=== PATIENT | female | born 1965 | race Two or more races ===

== ENCOUNTER 2017-03-29 05:35 | Inpatient (IN) | payer OTHER ==
[~2017-03-29] VITALS: Ht 165.1 cm; Wt 54.4 kg
--- NOTE | 2017-03-29 06:05 | NUR ---
pt bibra fr home for c/o rt eye pain, KIM w/ nonproductive cough, lower body aches. AOX4, afebrile w/ resp even & unlabored, tachypneic, hypoxic, tachycardic, w/ mild discomfort noted. pt placed in gown, on 2 l/min O2 via NC, continuous pulse-ox w/ cardiac monitoring. Dr. Newman at bedside for further eval.
--- NOTE | 2017-03-29 06:18 | NUR ---
Dr. Newman at bedside for eye exam rt eye.
--- NOTE | 2017-03-29 06:24 | NUR ---
CXR at bedside.
[2017-03-29] MEDS ORDERED: ONDANSETRON HCL/PF 4 MG/2 ML VIAL IVP ONE (06:30)
[2017-03-29] MEDS ORDERED: AZITHROMYCIN 500 MG in IV D5W 250 ML IV ONE (06:30)
[2017-03-29] MEDS ORDERED: IV NS 0.9% 1,000 ML BAG IV ONE ×2 (06:30→07:00)
[2017-03-29] MEDS ORDERED: MORPHINE SULFATE INJ 2 MG/ML DISP.SYRIN IV ONE ×2 (06:30→11:00)
[2017-03-29] MEDS ORDERED: TETRACAINE HCL 0.5% OPHTALMIC 15 ML BOTTLE OP ONE (06:30)
[2017-03-29] MEDS ORDERED: CEFTRIAXONE 1GM BAG (ER ONLY) 50 ML IV ONE ×2 (06:30→06:34)
[2017-03-29] MEDS ORDERED: ALBUTEROL FS 2.5 MG/3 ML VIAL.NEB NEB ONE (06:30)
[2017-03-29] MEDS ORDERED: IPRATROPIUM NEB FS 0.5 MG/2.5 ML AMPUL.NEB NEB ONE (06:30)
--- NOTE | 2017-03-29 06:30 | NUR ---
[facility] STARTED, LABS DRAWN W/ BLOOD CULTURES & LACTIC ACID, SENT W/ RSV SWAB TO LAB.
[2017-03-29] MEDS ORDERED: AZITHROMYCIN 500 MG VIAL ONE (06:33)
[2017-03-29] MEDS ORDERED: MORPHINE SULFATE INJ 4 MG/ML DISP.SYRIN ONE (06:33)
[2017-03-29] MEDS ORDERED: IV SET PRIMARY PUMP SET 1 EA INFUS.SET MC ONE ×2 (06:34→09:53)
[2017-03-29] MEDS ORDERED: ONDANSETRON HCL/PF 4 MG/2 ML VIAL ONE (06:34)
[2017-03-29] MEDS ORDERED: IV SET PRIMARY 1 EA INFUS.SET MC ONE ×2 (06:34→07:06)
[2017-03-29] MEDS ORDERED: IV NS 0.9% 1,000 ML ONE ×2 (06:34→07:06)
[2017-03-29] MEDS ORDERED: IV D5W 250 ML IV ONE (06:34)
[2017-03-29 06:38] LABS: BASOPHILS # (AUTO) 0.2 /CMM (0.0-0.2); BASOPHILS % (AUTO) 1.1 % (0.0-2.0); EOSINOPHILS # (AUTO) 0.3 /CMM (0.0-0.7); EOSINOPHILS % (AUTO) 2.1 % (0.0-6.0); HEMATOCRIT 39 % (33-45); HEMOGLOBIN 12.7 g/dL (11.5-14.8); LYMPHOCYTES # (AUTO) 0.5 /CMM (0.8-4.8); LYMPHOCYTES % (AUTO) 2.9 % (20.0-44.0); MEAN CORPUSCULAR HEMOGLOBIN 30 PG (26.0-33.0); MEAN CORPUSCULAR HGB CONC 33 g/dl (31.0-36.0); MEAN CORPUSCULAR VOLUME 90 fL (82-100); MONOCYTES # (AUTO) 0.4 /CMM (0.1-1.30); MONOCYTES % (AUTO) 2.7 % (2.0-12.0); NEUTROPHILS # (AUTO) 14.9 /CMM (1.8-8.9); NEUTROPHILS % (AUTO) 91.2 % (43.0-81.0); PLATELET COUNT (AUTO) 261 /CMM (150-450); RDW COEFFICIENT OF VARIATION 13.3 (11.5-15.0); WHITE BLOOD COUNT (AUTO) 16.4 K/uL (4.3-11.0)
[2017-03-29] MEDS ORDERED: ALBUTEROL FS 2.5 MG/3 ML VIAL.NEB ONE (06:38)
[2017-03-29] MEDS ORDERED: IPRATROPIUM NEB FS 0.5 MG/2.5 ML AMPUL.NEB ONE (06:39)
[2017-03-29 06:47] LABS: CALCIUM, SERUM 8.6 mg/dL (8.5-10.1); CARBON DIOXIDE 26 mmol/L (21-32); CHLORIDE 99 mmol/L (98-107); GFR 58 mL/min (>60); GLUCOSE 113 mg/dL (74-106); POTASSIUM 3.1 mmol/L (3.5-5.1); SODIUM SERUM 137 mmol/L (136-145); UREA NITROGEN, BLOOD 9 mg/dL (7-18)
--- NOTE | 2017-03-29 06:51 | NUR ---
EKG at bedside. BUSINESS CONTINUITY CONSULTANT at bedside for breathing tx.
[2017-03-29 06:59] LABS: LACTIC ACID 3.3 mmol/L (0.4-2.0)
--- NOTE | 2017-03-29 07:00 | NUR ---
pt sent to CT via [facility].
--- NOTE | 2017-03-29 07:14 | NUR ---
pt return fr CT. Eye exam performed. On continuous pulse-ox w/ cardiac monitoring.
[2017-03-29] MEDS ORDERED: IOHEXOL-350 100 ML VIAL IV ONE (07:32)
[2017-03-29] MEDS ORDERED: IV NS 0.9% 250 ML IV ONE (07:32)
[2017-03-29] MEDS ORDERED: CT SWABBABLE VALVE TRANS SET 1 EA INFUS.SET MC ONE (07:32)
--- NOTE | 2017-03-29 07:38 | NUR ---
pt sent to CT for CTPA.
[2017-03-29] MEDS ORDERED: LEVO112T2 PO (07:57)
--- NOTE | 2017-03-29 07:57 | NUR ---
pt back fr CT.
[2017-03-29] MEDS ORDERED: ACETAMINOPHEN ES 500 MG TABLET ONE (08:26)
[2017-03-29] MEDS ORDERED: ACETAMINOPHEN ES 500 MG TABLET PO ONE (08:30)
[2017-03-29 09:03] LABS: BILIRUBIN,DIRECT 0.2 mg/dL (0.0-0.2); BILIRUBIN,TOTAL 0.4 mg/dL (0.2-1.0)
--- NOTE | 2017-03-29 09:11 | NUR ---
REPORT GIVEN TO MAJOR MORA FOR CONTINUATION OF CARE.
--- NOTE | 2017-03-29 09:20 | NUR ---
PT TRANSFERED TO VIA [facility] VIA [facility]
[2017-03-29 09:26] LABS: LACTIC ACID REFLEX 2.6 mmol/L (0.4-1.9)
[2017-03-29] MEDS ORDERED: Z GUARD REMEDY 2 OZ OINT TP PRN (09:30)
[2017-03-29] MEDS ORDERED: MAGNESIUM HYDROXIDE 30 ML UDC PO PRN (09:30)
[2017-03-29] MEDS ORDERED: ZOLPIDEM TARTRATE 5 MG TABLET PO PRN (09:30)
[2017-03-29] MEDS ORDERED: MAG HYDROX/AL HYDROX/SIMETH 30 ML UDC PO PRN (09:30)
[2017-03-29] MEDS ORDERED: ACETAMINOPHEN 325 MG TABLET PO PRN (09:30)
--- NOTE | 2017-03-29 09:40 | NUR ---
RECEIVED PT FROM ER. PT IS A/O X4. PT COMPLAINING OF SEVERE RIGHT EYE PAIN AND HEADACHE. PT ALSO COMPLAINING OF NAUSEA. PT HAS NO COUGH AND DOES NOT EXHIBIT ANY S/S OF DISTRESS. WILL CONTINUE TO MONITOR PT THROUGHOUT SHIFT AND PROVIDE PAIN MANAGEMENT. WILL CARRY OUT ORDERS PRESCRIBED.
[2017-03-29] MEDS: LEVOTHYROXINE SODIUM 112 MCG TABLET PO SCH (10:02)
[2017-03-29] MEDS: HYDROCODONE/APAP 5/325MG 1 EACH TABLET PO PRN (10:02)
[2017-03-29] MEDS: IV NS 0.9% 1,000 ML IV PRN (10:02)
--- NOTE | 2017-03-29 10:40 | NUR ---
PT COMPLAINING OF WORSENING EYE PAIN. NORCO WAS GIVEN AT 1002. PT STATES THAT PAIN STILL REMAINS 10/10. DR. MONTANO MADE AWARE OF EYE/HEAD PAIN. DR. MONTANO MADE AWARE OF BP 94/58 AND HR AT [address]. MONTANO ASSESSED PT. ORDER RECEIVED FOR 1 MG MORPHINE. ORDERS WILL BE CARRIED OUT PRESCRIBED. WILL MONITOR BP THROUGHOUT SHIFT AND AFTER MORPHINE.
--- NOTE | 2017-03-29 11:25 | NUR ---
PT SEEN BY DR. ALBARRAN. ORDERS RECEIVED FOR TORADOL. MORPHINE ORDER STOPPED. ORDERS WILL BE CARRIED OUT AND PT WILL BE MONITORED.
[2017-03-29] MEDS ORDERED: KETOROLAC TROMETHAMINE INJ 30 MG/ML VIAL IV ONE (11:30)
[2017-03-29] MEDS: POTASSIUM CHLORIDE 20 MEQ TAB.PRT.SR PO SCH ×2 (11:35→12:57)
[2017-03-29] MEDS ORDERED: METOCLOPRAMIDE HCL 10 MG TABLET PO PRN (13:30)
[2017-03-29] MEDS: NAPROXEN 500 MG TABLET PO SCH (15:06)
[2017-03-29] MEDS ORDERED: PROMETHAZINE HCL 25 MG/ML AMPUL IV ONE (17:30)
[2017-03-29] MEDS ORDERED: SUMATRIPTAN SUCCINATE 100 MG TABLET PO ONE (17:30)
[2017-03-29] MEDS: LACTOBACILLUS RHAMNOSUS GG 1 EACH CAP.SPRINK PO SCH (18:00)
--- NOTE | 2017-03-29 19:06 | NUR ---
MS RN NOTES PT IS A/O X4. PT IS CURRENTLY RESTING IN BED. PT STATED THAT RIGHT EYE PAIN AND HEADACHE IS BECOMING MORE MANAGEABLE; HOWEVER, PT STILL STATES SHE HAS SOME PAIN. IV IS INTACT AND PATENT. NO SOB OR ANY S/S OF DISTRESS NOTED. BED IS IN LOW LOCKED POSITION. CALL LIGHT IS WITHIN REACH. WILL ENDORSE CARE TO PM SHIFT.
--- NOTE | 2017-03-29 19:10 | NUR ---
RN NOTE RECEIVED REPORT. PT AAOX4, C/O NON-RADIATING CHEST PAIN WITH INSPIRATION. NO SOB NOTED. ON NC 2L. TELE SR. IV INTACT AND PATENT. CALL LIGHT IN REACH,W ILL CONT TO MONITOR.
[2017-03-29 20:28] VITALS: BP 107/66
[2017-03-29] MEDS ORDERED: ALBUTEROL HALF STRENGTH 1.25 MG/3 ML VIAL.NEB NEB PRN (21:30)
[2017-03-29] MEDS ORDERED: GUAIFENESIN/CODEINE 10 ML UDC PO PRN (21:30)
[2017-03-30] VITALS: BP 121/67
[2017-03-30] MEDS: IV NS 0.9% 1,000 ML IV PRN (01:50)
[2017-03-30 04:00] VITALS: BP 121/56
[2017-03-30] MEDS ORDERED: SECONDARY IV SET 1 EA INFUS.SET MC ONE ×2 (04:47→08:56)
[2017-03-30] MEDS: HYDROCODONE/APAP 5/325MG 1 EACH TABLET PO PRN (04:53)
[2017-03-30] MEDS: CEFTRIAXONE 1 G in IV D5W 50 ML IV SCH (04:53)
[2017-03-30] MEDS ORDERED: SUMATRIPTAN SUCCINATE 100 MG TABLET ONE (05:58)
[2017-03-30] MEDS ORDERED: SUMATRIPTAN SUCCINATE 100 MG TABLET PO ONE (06:00)
--- NOTE | 2017-03-30 06:00 | NUR ---
RN NOTE PT C/O EXCRUCIATING RIGHT EYE PAIN, PER MD GIVE IMITREX 100 MG ONCE. ORDERS CARRIED OUT. WILL CONT TO MONITOR.
--- NOTE | 2017-03-30 06:34 | NUR ---
RN NOTE NO SIGNIFICANT CHANGES OVERNIGHT. NO S/S OF ANY DISTRESS AT THIS TIME. PT RESTING IN BED WITH EYES CLOSED. ON NC 2L. TELE SHOWS SR <--> ST. IV INTACT AND PATENT TOLERATING FLUIDS WELL. BREATHING NON-LABORED AND EVEN. ALL NEEDS ATTENED TO, WILL F/U WITH DAY SHIFT FOR JOY.
[2017-03-30 07:18] VITALS: BP 124/58
[2017-03-30] MEDS: LEVOTHYROXINE SODIUM 112 MCG TABLET PO SCH (07:47)
--- NOTE | 2017-03-30 07:50 | NUR ---
RN OPENING NOTE PATIENT IS ALERT AND ORIENTED x4. NO PAIN AT THIS TIME. NO SOB OR DISTRESS NOTED. CALL LIGHT WITHIN REACH. SAFETY MEASURES IMPLEMENTED. IV BEGAN TO LEAK DURING SHIFT CHANGE. IV REMOVED. ABLE TO COMMUNICATE NEEDS. IV RESTARTED ON LEFT WRIST 22G INTACT AND PATENT NO REDNESS OR SWELLING NOTED. WILL CONTINUE TO MONITOR
[2017-03-30 07:59] LABS: BASOPHILS % (AUTO) 0.2 % (0.0-2.0); EOSINOPHILS # (AUTO) 0.4 /CMM (0.0-0.7); EOSINOPHILS % (AUTO) 7.6 % (0.0-6.0); HEMATOCRIT 30 % (33-45); LYMPHOCYTES # (AUTO) 0.8 /CMM (0.8-4.8); LYMPHOCYTES % (AUTO) 14.1 % (20.0-44.0); MEAN CORPUSCULAR HEMOGLOBIN 30 PG (26.0-33.0); MEAN CORPUSCULAR HGB CONC 34 g/dl (31.0-36.0); MEAN CORPUSCULAR VOLUME 90 fL (82-100); MONOCYTES # (AUTO) 0.4 /CMM (0.1-1.30); MONOCYTES % (AUTO) 6.5 % (2.0-12.0); NEUTROPHILS # (AUTO) 4.2 /CMM (1.8-8.9); NEUTROPHILS % (AUTO) 71.6 % (43.0-81.0); PLATELET COUNT (AUTO) 182 /CMM (150-450); RDW COEFFICIENT OF VARIATION 13.6 (11.5-15.0); WHITE BLOOD COUNT (AUTO) 5.8 K/uL (4.3-11.0)
[2017-03-30 08:13] LABS: ALBUMIN 2.2 g/dL (3.4-5.0); BILIRUBIN,TOTAL 0.1 mg/dL (0.2-1.0); CALCIUM, SERUM 7.9 mg/dL (8.5-10.1); CREATININE 0.7 mg/dL (0.6-1.3); PHOSPHORUS 1.9 mg/dL (2.5-4.9); POTASSIUM 3.5 mmol/L (3.5-5.1); TOTAL PROTEIN, SERUM 5.5 g/dL (6.4-8.2)
[2017-03-30] MEDS: AZITHROMYCIN 500 MG in IV D5W 250 ML IV SCH (08:23)
[2017-03-30] MEDS: PANTOPRAZOLE 40 MG TABLET.DR PO SCH (08:24)
[2017-03-30] MEDS: NAPROXEN 500 MG TABLET PO SCH (08:24)
[2017-03-30] MEDS: LACTOBACILLUS RHAMNOSUS GG 1 EACH CAP.SPRINK PO SCH ×2 (08:24→17:44)
[2017-03-30] MEDS ORDERED: METOCLOPRAMIDE HCL 10 MG TABLET PO SCH (09:00)
[2017-03-30] MEDS ORDERED: KETOROLAC TROMETHAMINE INJ 30 MG/ML VIAL IV PRN (09:00)
[2017-03-30] MEDS ORDERED: IV NS 0.9% 1,000 ML IV PRN (09:33)
[2017-03-30] MEDS ORDERED: NAPROXEN 500 MG TABLET PO PRN (10:39)
[2017-03-30] MEDS: ONDANSETRON HCL/PF 4 MG/2 ML VIAL IVP PRN ×2 (10:42→17:49)
[2017-03-30] MEDS ORDERED: METOCLOPRAMIDE HCL 10 MG TABLET PO PRN (12:00)
[2017-03-30 16:00] VITALS: BP 106/70
--- NOTE | 2017-03-30 16:30 | NUR ---
RN NOTE TRANSFERRED PATIENT TO ABBY GRIJALVA. GAVE REPORT AT PATIENT'S BEDSIDE. PATIENT IS ALERT AND ORIENTED x4. STABLE. NO PAIN AT THIS TIME. NO SOB OR DISTRESS NOTED. ALL DUE MEDICATION GIVEN ORDERED. SAFETY MEASURES IMPLEMENTED. CALL LIGHT WITHIN REACH AT ALL TIMES.
--- NOTE | 2017-03-30 16:30 | NUR ---
RN NOTES RECEIVED PATIENT IN BED RESTING NO SOB OR ACUTE DISTRESS NOTED. IV PATENT INTACT. BED IN LOW LOCKED POSITION, CALL LIGHT WITHIN REACH. PATIENT DENIES NAUSEA OR ANY PAIN WILL CONTINUE TO MONITOR.
[2017-03-30] MEDS ORDERED: K PHOS NEUTRAL 250 MG TABLET PO ONE (17:00)
--- NOTE | 2017-03-30 19:30 | NUR ---
RN NOTES PATIENT IN BED RESTING NO SOB OR ACUTE DISTRESS NOTED. ALL DUE MEDICATIONS ADMINISTERED. ALL NEEDS MET. ENDORSED CARE TO PM SHIFT. IV INTACT PATENT.
--- NOTE | 2017-03-30 19:35 | NUR ---
TELE/RN NOTES RECEIVED PT. LYING IN BED. AWAKE, ALERT AND ORIENTED X4. BREATHING EVEN AND UNLABORED ON ROOM AIR. NO SOB OR RESPIRATORY DISTRESS NOTED AT THIS TIME. PT. COMPLAINS OF SLIGHT PAIN IN RIGHT FOREHEAD. NO COMPLAINTS OF LIGHTHEADED OR DIZZINESS AT THIS TIME. PT. RECENTLY RECEIVED NAPROXEN PER DAYSHIFT NURSE. PER PT. PAIN IS IMPROVED SINCE RECEIVING MEDICATION. WILL CONTINUE TO MONITOR PT. FOR PAIN AND ADMINISTER PAIN MEDICATION ORDERED. PT. WITH EXTERNAL QUALITY ASSURANCE MONITOR PRESENT AND INTACT. CURRENT RHYTHM = SINUS RHYTHM HR 72. PT. WITH LEFT AC 20 GAUGE IV SALINE LOCK PRESENT, PATENT AND INTACT. BED IN LOWEST POSITION, CALL LIGHT WITHIN REACH, WILL CONTINUE TO MONITOR.
[2017-03-30 20:00] VITALS: BP 101/63
[2017-03-31] MEDS: CEFTRIAXONE 1 G in IV D5W 50 ML IV SCH (06:02)
--- NOTE | 2017-03-31 06:45 | NUR ---
TELE/RN NOTES PT. LYING IN BED RESTING. BREATHING EVEN AND UNLABORED ON ROOM AIR. NO SOB OR RESPIRATORY DISTRESS NOTED AT THIS TIME. NO COMPLAINTS OF LIGHTHEADED OR DIZZINESS AT THIS TIME AND THROUGHOUT SHIFT. PT. WITH EXTERNAL LAST MODEL MAKER PRESENT AND INTACT. CURRENT RHYTHM = SINUS RHYTHM HR 68. PT. WITH LEFT AC 20 GAUGE PERIPHERAL IV PRESENT, PATENT AND INTACT ADMINISTERING TO PT. NS @ 75ML/HR. ALL PT. NEEDS MET. BED IN LOWEST POSITION, CALL LIGHT WITHIN REACH, WILL ENDORSE TO DAYSHIFT NURSE FOR CONTINUITY OF CARE.
--- NOTE | 2017-03-31 07:30 | NUR ---
RECEIVED PT. IN AM ALERT AND ORIENTED X3.SEEMS A LITTLE SAD.
[2017-03-31 08:00] VITALS: BP 115/71
[2017-03-31 08:27] LABS: BASOPHILS % (AUTO) 0.3 % (0.0-2.0); EOSINOPHILS # (AUTO) 0.8 /CMM (0.0-0.7); EOSINOPHILS % (AUTO) 13.5 % (0.0-6.0); HEMATOCRIT 31 % (33-45); HEMOGLOBIN 10.2 g/dL (11.5-14.8); LYMPHOCYTES # (AUTO) 1.3 /CMM (0.8-4.8); LYMPHOCYTES % (AUTO) 21.3 % (20.0-44.0); MEAN CORPUSCULAR HEMOGLOBIN 30 PG (26.0-33.0); MEAN CORPUSCULAR HGB CONC 34 g/dl (31.0-36.0); MEAN CORPUSCULAR VOLUME 90 fL (82-100); MONOCYTES # (AUTO) 0.5 /CMM (0.1-1.30); MONOCYTES % (AUTO) 7.8 % (2.0-12.0); NEUTROPHILS # (AUTO) 3.5 /CMM (1.8-8.9); NEUTROPHILS % (AUTO) 57.1 % (43.0-81.0); PLATELET COUNT (AUTO) 226 /CMM (150-450); RDW COEFFICIENT OF VARIATION 13.4 (11.5-15.0); RED BLOOD CELL COUNT(AUTO) 3.41 MIL/uL (4.0-5.2); WHITE BLOOD COUNT (AUTO) 6.1 K/uL (4.3-11.0)
[2017-03-31 08:30] LABS: CALCIUM, SERUM 7.9 mg/dL (8.5-10.1); CREATININE 0.6 mg/dL (0.6-1.3); PHOSPHORUS 3.4 mg/dL (2.5-4.9); POTASSIUM 3.3 mmol/L (3.5-5.1)
[2017-03-31] MEDS: LEVOTHYROXINE SODIUM 112 MCG TABLET PO SCH (09:09)
[2017-03-31] MEDS: LACTOBACILLUS RHAMNOSUS GG 1 EACH CAP.SPRINK PO SCH (09:09)
[2017-03-31] MEDS: PANTOPRAZOLE 40 MG TABLET.DR PO SCH (09:09)
[2017-03-31] MEDS: AZITHROMYCIN 500 MG in IV D5W 250 ML IV SCH (09:46)
[2017-03-31] MEDS ORDERED: POTASSIUM CHLORIDE 20 MEQ TAB.PRT.SR PO SCH (11:00)
[2017-03-31 12:00] VITALS: BP 113/71
--- NOTE | 2017-03-31 12:30 | NUR ---
POTASSIUM REPLACEMENT ORALLY FOR LOW POTASSIUM.
--- NOTE | 2017-03-31 13:00 | NUR ---
SISTER HERE TO METER/RELAY TECHNICIAN PT. STATES PT. TAKING CARE OF SICK BROTHER AT HOME. HEP LOCK OUT. GIVEN RXS AND ALL DC INSTRUCTIONS.VERBALIZED UNDERSTANDING.AWARE OF APPROVED ACTIVITY LEVEL PER DR. MONTANOS INSTRUCTIONS.BELONGING SHEET SIGNED.TAKEN TO LOBBY VIA W/C ACC. BY SISTER AND PRODUCT SALES ENGINEER.
== END 2017-03-31 13:00 | disposition home or self-care (01) | DRG 720 ==
LOC: ER 05:44 → TELE 08:41 → MED 03-31 09:20
PROVIDERS: ADMIT Family Medicine; ATTEND Family Medicine
DX: A41.9 Sepsis, unspecified organism (principal); E87.2 Acidosis; J15.9 Unspecified bacterial pneumonia; N39.0 Urinary tract infection, site not specified; E03.9 Hypothyroidism, unspecified; R65.20 Severe sepsis without septic shock; H57.11 Ocular pain, right eye; G43.009 Migraine without aura, not intractable, without status migrainosus; M47.9 Spondylosis, unspecified
CPT/HCPCS: 36415; 70450-TC; 71010-TC; 80048-TC; 80053-TC; 82247-TC; 82248-TC; 83605-TC; 83735-TC; 84100-TC; 84484-TC; 85025-TC; 87040-TC; 87081-TC; 87400; A4606; J0456; J0696; J1885; J2270; J2405; J2550; J7030; J7050; J7060; J8597; Q9967; Z7610